=== PATIENT | female | born 1970 | race Caucasian/White ===

== ENCOUNTER 2017-10-11 07:39 | Emergency (ER) | payer BC, OTHER ==
[~2017-10-11] VITALS: Ht 167.6 cm; Wt 128.7 kg
[2017-10-11 07:46] VITALS: Ht 167.6 cm; Wt 128.7 kg
[2017-10-11] MEDS ORDERED: DEXAMETHASONE INJ 10 MG in SYRINGE 0 ML IV STA (08:09)
[2017-10-11] MEDS ORDERED: PROCHLORPERAZINE 5 MG/ML 2 ML VIAL IV STA (08:09)
[2017-10-11] MEDS ORDERED: KETOROLAC TROMETHAMINE 30 MG/ML VIAL IV STA (08:09)
[2017-10-11] MEDS ORDERED: SODIUM CHLORIDE 0.9% 1000ML 1,000 ML IV STA (08:09)
[2017-10-11] MEDS ORDERED: PHEN-905 PO (08:19)
[2017-10-11] MEDS ORDERED: PHEN-582 PO (08:19)
[2017-10-11] MEDS ORDERED: PSEUCAP67 PO (08:19)
[2017-10-11] MEDS ORDERED: DIPH1TAB87 PO (08:20)
--- NOTE | 2017-10-11 08:28 | EMERGENCY ROOM VISIT NOTE ---
History First contact with patient: 07:52 Chief Complaint: FLU LIKE SX Stated Complaint: MIGRAINE,FLU,NO SLEEP History of Present Illness The patient is a 46 year old female who presents to the Emergency Room with complaints of migraine headache for the past 5 days. She states "I think I have a stomach flu that just won't go away." She describes the headache as pounding/throbbing, frontal and behind the eyes, does not radiate, nothing makes it better, 8/10. She has had associated photophobia. The patient states that she started with nausea/vomiting and diarrhea 5 days ago, and then began to develop a headache with this. Possible sick contacts with similar symptoms. She states that she has a history of migraine headaches and this feels the same. She states that she has not been able to keep down minimal fluids and has been having difficulty sleeping. Normally when she gets a migraine headache , she "sleeps it off and it gets better." She states that she has tried Tylenol , ibuprofen, Benadryl for her symptoms, without any improvement. She denies any fevers or chills, neck pain or stiffness, chest pain, shortness of breath, abdominal pain, back pain, blood in her stool or vomit, dysuria or urinary frequency, rash. Her last menstrual period was 3 weeks ago. Review of Systems A complete 10 point review of systems was reviewed with the patient with pertinent positives and negatives as per history of present illness. All else were negative. Past Medical/Surgical History Migraines, chronic pain on narcotics Social History Smoking Status: Never Smoker Alcohol Use: none Drug Use: none Current/Historical Medications Scheduled Alprazolam (Xanax), 2 MG PO DAILY Furosemide (Lasix), 40 MG PO DAILY Morphine Sulfate (Morphine Sulfate ER), 1 TAB PO Q12 Oxycodone HCl (Oxycodone Hydrochloride), 15 MG PO QID Hqdgqornytgxa-Fy-Hx W/ Apap (Tylenol Cold & Flu Severe), 2 TAB PO BID Xxbfgglkwefoh-Ryfjlqlcqc-Xbudj (Nyquil Severe Cold/Flu 5-6.25-10-325 mg/15Ml), 5 -10 ML PO BID Pseudoephedrine-Ibuprofen (Advil Cold & Sinus), 2 TABS PO BID Scheduled PRN Diphenhydramine Hcl (Benadryl Allergy), 25 MG PO DAILY PRN for SNEEZING Zolpidem Tartrate (Zolpidem Tartrate), 1 TAB PO HS PRN for UNDECIDED Allergies Reviewed in chart Physical Exam Vital Signs Date Time Temp Pulse Resp B/P (MAP) Pulse Ox O2 Delivery O2 Flow Rate FiO2 10/11/17 12:41 36.8 77 17 141/91 97 10/11/17 11:49 36.8 77 17 141/91 97 Room Air 10/11/17 10:02 56 17 135/82 97 Room Air 10/11/17 08:50 36.8 72 17 136/96 98 Room Air 10/11/17 08:29 98 Room Air 10/11/17 08:26 65 10/11/17 07:46 36.8 66 17 146/90 97 Room Air Physical Exam CONSTITUTIONAL: No acute distress. Moderately dehydrated. Alert and oriented X 4 with normal affect. HEENT: Normocephalic, atraumatic. PERRL, EOMI. Positive photophobia. TMs normal. Pharynx normal. Dry mucous membranes. NECK: Supple, full active range of motion without discomfort. RESPIRATORY: Clear to auscultation bilaterally with no wheezing, crackles, rhonchi or stridor. Equal expansion bilaterally. CARDIOVASCULAR: Regular rate and rhythm with no murmurs, rubs or gallops. Normal peripheral perfusion. No edema. GASTROINTESTINAL: Soft, nontender, nondistended. Bowel sounds present in all quadrants. MUSCULOSKELETAL: Full range of motion of all joints without discomfort. INTEGUMENTARY: No rash or other significant dermatologic conditions noted. NEUROLOGIC: Cranial nerves II-XII grossly intact. No focal neurologic deficits noted. Normal strength and sensation all 4 extremities, no facial droop, no pronator drift, normal gait and balance, normal speech, normal finger-nose- finger testing, negative Romberg. Medical Decision & Procedures Laboratory Results 10/11/17 08:32 Red Blood Count 5.53, Mean Corpuscular Volume 79.0, Mean Corpuscular Hemoglobin 26.4, Mean Corpuscular Hemoglobin Concent 33.4, Mean Platelet Volume 9.9, Neutrophils (%) (Auto) 69.4, Lymphocytes (%) (Auto) 25.2, Monocytes (%) (Auto) 4.6, Eosinophils (%) (Auto) 0.1, Basophils (%) (Auto) 0.1, Neutrophils # (Auto) 10.81, Lymphocytes # (Auto) 3.92, Monocytes # (Auto) 0.71, Eosinophils # (Auto) 0.01, Basophils # (Auto) 0.01 10/11/17 08:32 Test 10/11/17 08:32 10/11/17 11:20 White Blood Count 15.56 K/uL (4.8-10.8) Red Blood Count 5.53 M/uL (4.2-5.4) Hemoglobin 14.6 g/dL (12.0-16.0) Hematocrit 43.7 % (37-47) Mean Corpuscular Volume 79.0 fL (80-100) Mean Corpuscular Hemoglobin 26.4 pg (25-34) Mean Corpuscular Hemoglobin Concent 33.4 g/dl (32-36) Platelet Count 469 K/uL (130-400) Mean Platelet Volume 9.9 fL (7.4-10.4) Neutrophils (%) (Auto) 69.4 % Lymphocytes (%) (Auto) 25.2 % Monocytes (%) (Auto) 4.6 % Eosinophils (%) (Auto) 0.1 % Basophils (%) (Auto) 0.1 % Neutrophils # (Auto) 10.81 K/uL (1.4-6.5) Lymphocytes # (Auto) 3.92 K/uL (1.2-3.4) Monocytes # (Auto) 0.71 K/uL (0.11-0.59) Eosinophils # (Auto) 0.01 K/uL (0-0.5) Basophils # (Auto) 0.01 K/uL (0-0.2) RDW Standard Deviation 41.2 fL (36.4-46.3) RDW Coefficient of Variation 14.3 % (11.5-14.5) Immature Granulocyte % (Auto) 0.6 % Immature Granulocyte # (Auto) 0.10 K/uL (0.00-0.02) Anion Gap 10.0 mmol/L (3-11) Est Creatinine Clear Calc Drug Dose 105.0 ml/min Estimated GFR () 86.5 Estimated GFR (Non- 74.7 BUN/Creatinine Ratio 17.2 (10-20) Calcium Level 9.7 mg/dl (8.5-10.1) Total Bilirubin 0.5 mg/dl (0.2-1) Direct Bilirubin 0.1 mg/dl (0-0.2) Aspartate Amino Transf (AST/SGOT) 17 U/L (15-37) Alanine Aminotransferase (ALT/SGPT) 22 U/L (12-78) Alkaline Phosphatase 120 U/L (45-117) Total Protein 8.8 gm/dl (6.4-8.2) Albumin 4.1 gm/dl (3.4-5.0) Lipase 277 U/L (73-393) Urine Color YELLOW Urine Appearance CLEAR (CLEAR) Urine pH 5.5 (4.5-7.5) Urine Specific Roscoe 1.023 (1.000-1.030) Urine Protein NEG (NEG) Urine Glucose (UA) NEG (NEG) Urine Ketones 2+ (NEG) Urine Occult Blood NEG (NEG) Urine Nitrite NEG (NEG) Urine Bilirubin NEG (NEG) Urine Urobilinogen NEG (NEG) Urine Leukocyte Esterase NEG (NEG) Urine Test NEG (NEG) Medications Administered Medications (Trade) Dose Ordered Sig/Tonny Route Start Time Stop Time Status Last Admin Dose Admin Sodium Chloride 1,000 ml @ 999 mls/hr Q1H1M STAT IV 10/11/17 08:09 10/11/17 09:09 DC 10/11/17 08:46 999 MLS/HR Ketorolac Tromethamine (Toradol Inj) 15 mg NOW STAT IV 10/11/17 08:09 10/11/17 08:14 DC 10/11/17 08:45 15 MG Prochlorperazine Edisylate (Compazine Inj) 10 mg NOW STAT IV 10/11/17 08:09 10/11/17 08:14 DC 10/11/17 08:47 10 MG Dexamethasone Sodium Phosphate (Dexamethasone Inj Pf) 10 mg STK-MED ONCE .ROUTE 10/11/17 08:35 10/11/17 08:36 DC 10/11/17 08:46 10 MG Diphenhydramine HCl (Benadryl Inj) 50 mg NOW STAT IV 10/11/17 09:38 10/11/17 09:40 DC 10/11/17 09:58 50 MG Medical Decision CC: Patient presenting with complaint of nausea/vomiting, diarrhea, migraine headache Interpretation of Labs: Leukocytosis with left shift, no anemia, no significant electrolyte abnormalities, normal renal function, normal liver enzymes and lipase. UA negative for infection, consistent with dehydration. Urine negative. Differential Diagnosis: Includes, but not limited to migraine headache, tension headache, dehydration, electrolyte abnormalities, gastroenteritis, gastritis, food poisoning, , among others. Medication Reconciliation: I attest that I have personally reviewed the patient' s current medication list. Vital signs review: I reviewed the patient's vital signs and interpret them as follows: T: Afebrile; BP: Hypertensive; HR: Within normal limits; RR: Within normal limits; Pulse Ox: Within normal limits on room air. Blood pressure screening: The patient was found to have an elevated blood pressure and was referred to their primary doctor for recheck and further treatment. Summary: Patient was evaluated at bedside, history and physical exam performed. Patient alert and oriented, no acute distress but does appear uncomfortable and in pain, resting calmly in the stretcher. Neurologic exam is normal with no focal findings. Patient states this feels similar to previous migraines, is not the worst headache of her life and did not come on suddenly. She states "I just want to be able to sleep and I think the headache go away." Orders were placed at bedside for labs, UA and urine , IV fluids for hydration, IV Reglan/Toradol/Benadryl/Decadron to treat for migraine headache. Patient discussed with Dr. Hernández, who agrees with my assessment and plan. Labs reviewed, notable for leukocytosis and mild dehydration, no other acute abnormalities. Patient reassessed multiple times throughout ED stay, she reports she is feeling somewhat better, still has a migraine but states this is improving. She also feels better hydrated. She has tolerated oral fluids without difficulty. She was offered something additional for her migraine, but she declines this stating she would like to just go home and continue resting. I did encourage her to follow up with her PCP and to reestablish with a neurologist if her migraines continue, she verbalized understanding. I also gave her strict return percussion should her symptoms worsen, she verbalized understand. Patient was discharged home in stable condition and ambulatory. Head Trauma GCS Score: 15 Medication Reconcilliation Current Medication List: was personally reviewed by me Blood Pressure Screening Patient's blood pressure: Elevated blood pressure Blood pressure disposition: Referred to PCP Impression Primary Impression: Gastroenteritis Additional Impressions: Migraine Dehydration Departure Information Dispostion Home / Self-Care Condition GOOD Referrals No Doctor, Assigned (PCP) Forms HOME CARE DOCUMENTATION FORM, IMPORTANT VISIT INFORMATION Patient Instructions ED Food Poison Or Gastroenteritis, ED Headache Migraine, My [facility] Additional Instructions Rest today in a quiet, peaceful, dark environment and get a full 8-10 hrs of sleep tonight. Avoid loud noises, smoke/smoking, alcohol, bright lights, stress, or physical exertion today to minimize the chance the headache may return. Continue current medications as prescribed. Ibuprofen(Motrin, Advil) may be used for fever or pain. Use 600mg every 6-8 hours as needed. Take with food. Avoid using more than 2400mg in a 24 hour period. Do not use 2400mg per day for more than three consecutive days without physician direction. Prolonged inappropriate use can lead to stomach upset or ulcers. (AND/OR) Acetaminophen(Tylenol) may be used for fever or pain. Use 1000mg every 8 hours as needed. Avoid using more than 3000 mg in a 24 hour period. Return to the ER for passing out, worsening headache, vision problems, neck stiffness/pain, fevers, vomiting, worsening of your condition, or as needed. Follow up with your primary physician in 2-3 days for a recheck of your current condition. You may benefit from seeing a neurologist if your migraines continue. Work Instructions Return To Work: 1 day Problem Qualifiers Additional Impressions: Migraine Migraine type: unspecified Status migrainosus presence: without status migrainosus Intractability: not intractable Qualified Codes: G43.909 - Migraine, unspecified, not intractable, without status migrainosus
[2017-10-11 08:29] VITALS: O2SAT 98
[2017-10-11] MEDS ORDERED: DEXAMETHASONE **PF** INJ 10 MG/ML VIAL ONE (08:35)
[2017-10-11 08:50] LABS: BASO % 0.1 %; BASO ABS # 0.01 K/uL (0-0.2); COMPLETE YES; EOS % 0.1 %; HEMATOCRIT 43.7 % (37-47); IG% 0.6 %; LYMPH % 25.2 %; LYMPH ABS # 3.92 K/uL (1.2-3.4); MEAN CORPUSCULAR HEMOGLOBIN 26.4 pg (25-34); MEAN CORPUSCULAR HGB CONC 33.4 g/dl (32-36); MEAN PLATELET VOLUME 9.9 fL (7.4-10.4); MONO % 4.6 %; NEUT % 69.4 %; PLATELET COUNT 469 K/uL (130-400); RED BLOOD COUNT 5.53 M/uL (4.2-5.4); WHITE BLOOD COUNT 15.56 K/uL (4.8-10.8)
[2017-10-11 09:07] LABS: BUN/CREATININE RATIO 17.2 (10-20); CALCIUM 9.7 mg/dl (8.5-10.1); CREATININE 0.92 mg/dl (0.60-1.20); POTASSIUM 3.3 mmol/L (3.5-5.1)
[2017-10-11] MEDS ORDERED: DiphenhydrAMINE HCL 50 MG/ML VIAL IV STA (09:38)
[2017-10-11] MEDS ORDERED: FRS/40 PO (10:22)
[2017-10-11] MEDS ORDERED: ZOLP5TAB6 PO (10:22)
[2017-10-11] MEDS ORDERED: OXYC1CAP PO (10:22)
[2017-10-11] MEDS ORDERED: MRPSR60 PO (10:22)
[2017-10-11] MEDS ORDERED: ALPR1TAB3 PO (10:22)
[2017-10-11 11:36] LABS: URINE APPEARANCE CLEAR (CLEAR); URINE BILIRUBIN NEG (NEG); URINE COLOR YELLOW; URINE NITRITE NEG (NEG); URINE PH 5.5 (4.5-7.5); URINE SPECIFIC GRAVITY 1.023 (1.000-1.030); UROBILINOGEN NEG (NEG)
[2017-10-11 11:37] LABS: MANUAL MICROSCOPIC REQUIRED? NO; REVIEW REQ? NO
[2017-10-11 12:41] VITALS: BP 141/91; PULSE 77; TEMP 36.8; O2SAT 97
== END 2017-10-11 12:42 | disposition home or self-care (01) ==
LOC: C.EDB 07:41
DX: K52.9 Noninfective gastroenteritis and colitis, unspecified (principal); G43.909 Migraine, unspecified, not intractable, without status migrainosus; E86.0 Dehydration

== ENCOUNTER 2018-02-16 16:09 | Observation (INO) | payer OTHER ==
[~2018-02-16] VITALS: Ht 167.6 cm; Wt 121.2 kg
[~2018-02-16 16:09] MED LIST: ALPR1TAB3 PO; DIPH1TAB87 PO; FRS/40 PO; MRPSR60 PO; OXYC1CAP PO; PHEN-582 PO; PHEN-905 PO; PSEUCAP67 PO; ZOLP5TAB6 PO
[2018-02-16] MEDS ORDERED: NITROGLYCERIN 0.4 MG SL PER TAB CHARGE SL STA (16:23)
[2018-02-16] MEDS ORDERED: ASPIRIN 81 MG CHEW PO STA (16:23)
[2018-02-16] MEDS ORDERED: SODIUM CHLORIDE 0.9% 1000ML 1,000 ML IV STA (16:23)
--- NOTE | 2018-02-16 16:26 | EMERGENCY ROOM VISIT NOTE ---
History Report prepared by Corey: Alejandra Agustin Under the Supervision of: Dr. Eliseo Ken M.D. First contact with patient: 16:20 Chief Complaint: CARDIAC ASSESSMENT Stated Complaint: STOMACH/CHEST PAIN History of Present Illness The patient is a 47 year old female who presents to the Emergency Room with complaints of chest and epigastric pain beginning at 1000 this morning. She describes the pain as "weird" and rates her pain as a 6/10 in severity. She has SOB but denies having a cough. She denies traveling anywhere recently or taking hormone pills or creams. No hemoptysis. No recent surgery or trauma. No radiation of the chest pain. Source of History: patient Onset: 1000 this morning Position: chest Symptom Intensity: 6/10 in severity Quality: other ("weird") Associated Symptoms: + SOB, No cough Note: Negative recent travel or hormone pills or creams. Review of Systems See HPI for pertinent positives and negatives. A total of ten systems were reviewed and were otherwise negative. Past Medical & Surgical Medical Problems: (1) Chest pain (2) Chronic back pain (3) VANIA (generalized anxiety disorder) (4) Insomnia Family History Patient reports no known family medical history. Social History Smoking Status: Never Smoker Alcohol Use: none Drug Use: none Current/Historical Medications Scheduled Escitalopram (Lexapro), 10 MG PO DAILY Lorazepam (Ativan), 0.5 MG PO NEEDED Oxycodone HCl (Oxycodone Hydrochloride), 5 MG PO NEEDED Allergies Coded Allergies: Sulfa Antibiotics (Unverified Allergy, Unknown, RASH, 10/11/17) REACTION A TEEN Physical Exam Vital Signs Date Time Temp Pulse Resp B/P (MAP) Pulse Ox O2 Delivery O2 Flow Rate FiO2 02/16/18 18:39 75 18 153/79 98 Room Air 02/16/18 17:48 77 20 131/83 97 Room Air 02/16/18 17:11 80 20 130/71 98 Room Air 02/16/18 16:35 84 02/16/18 16:28 89 22 150/91 99 Room Air 02/16/18 16:22 96 Room Air 02/16/18 16:20 97 Room Air 02/16/18 16:16 36.9 94 17 142/100 97 Room Air Physical Exam Physical Exam GENERAL: She is oriented to person, place, and time. She appears well- developed and well-nourished. She does not appear distressed. ____ HENT: Exam performed. Head: Normocephalic and atraumatic. Right Ear: External ear normal. No mastoid tenderness. Left Ear: External ear normal. No mastoid tenderness. Mouth/Throat: The oropharynx is clear and moist. No trismus in the jaw. No dental abscesses or uvula swelling. No oropharyngeal exudate or tonsillar abscesses. ____ EYES: Conjunctivae and EOM are normal. Pupils are equal, round, and reactive to light. Right eye exhibits no discharge. Left eye exhibits no discharge. No scleral icterus. ____ NECK: Normal range of motion. Neck supple. No JVD present. No spinous process tenderness present. No carotid bruit present. No rigidity. No tracheal deviation and normal range of motion present. No Brudzinski's sign and no Kernig 's sign noted. ____ CV: Normal rate, regular rhythm, normal heart sounds and intact distal pulses. There is no peripheral edema. Palpable radial pulses bue. ____ PULM/CHEST: Effort normal and breath sounds normal. No respiratory distress. No stridor. She has no wheezes. She has no rales. Chest Wall: She exhibits no tenderness. ____ ABD: The abdomen is soft. Bowel sounds are normal. She has no distension. No mass is present. There is no tenderness. There is no rebound, no guarding, no Uribe's sign and no tenderness at McBurney's point. Rovsig negative MUSC/SKEL: Normal range of motion. There is no peripheral edema, tenderness or deformity. LYMPH: No cervical adenopathy. ____ NEURO: She is alert and oriented to person, place, and time. She has normal strength. No cranial nerve deficit or sensory deficit. Coordination and gait normal. GCS eye subscore is 4. GCS verbal subscore is 5. GCS motor subscore is 6. Cerebellar tests wnl. ____ SKIN: Skin is warm and dry. She is not diaphoretic. ____ PSYCH: She has a normal mood and affect. Her behavior is normal. Judgment and thought content normal. ____ Medical Decision & Procedures ER Provider Diagnostic Interpretation: Radiology results as stated below per my review and radiologist interpretation: CHEST 2 VIEWS ROUTINE HISTORY: Atypical chest pain. COMPARISON: None. FINDINGS: The lungs are clear. Cardiac silhouette is normal in size. No pleural effusions. No pneumothorax. IMPRESSION: No acute process. Electronically signed by: Curtis Brooke M.D. 02/16/2018 6:19 PM Dictated Date/Time: 02/16/2018 6:18 PM Laboratory Results 02/16/18 16:30 Red Blood Count 5.59, Mean Corpuscular Volume 81.2, Mean Corpuscular Hemoglobin 27.5, Mean Corpuscular Hemoglobin Concent 33.9, Mean Platelet Volume 10.8, Neutrophils (%) (Auto) 52.0, Lymphocytes (%) (Auto) 42.3, Monocytes (%) (Auto) 4.9, Eosinophils (%) (Auto) 0.2, Basophils (%) (Auto) 0.3, Neutrophils # (Auto) 5.41, Lymphocytes # (Auto) 4.39, Monocytes # (Auto) 0.51, Eosinophils # (Auto) 0.02, Basophils # (Auto) 0.03 02/16/18 16:30 Test 02/16/18 16:30 02/16/18 16:35 White Blood Count 10.39 K/uL (4.8-10.8) Red Blood Count 5.59 M/uL (4.2-5.4) Hemoglobin 15.4 g/dL (12.0-16.0) Hematocrit 45.4 % (37-47) Mean Corpuscular Volume 81.2 fL (80-100) Mean Corpuscular Hemoglobin 27.5 pg (25-34) Mean Corpuscular Hemoglobin Concent 33.9 g/dl (32-36) Platelet Count 458 K/uL (130-400) Mean Platelet Volume 10.8 fL (7.4-10.4) Neutrophils (%) (Auto) 52.0 % Lymphocytes (%) (Auto) 42.3 % Monocytes (%) (Auto) 4.9 % Eosinophils (%) (Auto) 0.2 % Basophils (%) (Auto) 0.3 % Neutrophils # (Auto) 5.41 K/uL (1.4-6.5) Lymphocytes # (Auto) 4.39 K/uL (1.2-3.4) Monocytes # (Auto) 0.51 K/uL (0.11-0.59) Eosinophils # (Auto) 0.02 K/uL (0-0.5) Basophils # (Auto) 0.03 K/uL (0-0.2) RDW Standard Deviation 44.3 fL (36.4-46.3) RDW Coefficient of Variation 15.1 % (11.5-14.5) Immature Granulocyte % (Auto) 0.3 % Immature Granulocyte # (Auto) 0.03 K/uL (0.00-0.02) D-Dimer 320 ug/L FEU (0-500) Anion Gap 7.0 mmol/L (3-11) Est Creatinine Clear Calc Drug Dose 93.3 ml/min Estimated GFR () 79.6 Estimated GFR (Non- 68.7 BUN/Creatinine Ratio 7.1 (10-20) Calcium Level 9.5 mg/dl (8.5-10.1) Total Bilirubin 0.4 mg/dl (0.2-1) Direct Bilirubin 0.1 mg/dl (0-0.2) Aspartate Amino Transf (AST/SGOT) 23 U/L (15-37) Alanine Aminotransferase (ALT/SGPT) 25 U/L (12-78) Alkaline Phosphatase 115 U/L (45-117) Troponin I < 0.015 ng/ml (0-0.045) Total Protein 8.2 gm/dl (6.4-8.2) Albumin 4.1 gm/dl (3.4-5.0) Lipase 132 U/L (73-393) Bedside Troponin I < 0.030 ng/ml (0-0.045) Laboratory results reviewed by me Medications Administered Medications (Trade) Dose Ordered Sig/Tonny Route Start Time Stop Time Status Last Admin Dose Admin Nitroglycerin (Nitrostat Tab) 0.4 mg ONE STAT SL 02/16/18 16:23 02/16/18 16:27 DC 02/16/18 16:31 0.4 MG Sodium Chloride 1,000 ml @ 999 mls/hr Q1H1M STAT IV 02/16/18 16:23 02/16/18 17:23 DC 02/16/18 16:34 999 MLS/HR Aspirin (Aspirin Chew) 324 mg NOW STAT PO 02/16/18 16:23 02/16/18 16:27 DC 02/16/18 16:30 324 MG Lorazepam (Ativan Inj) 1 mg NOW STAT IV 02/16/18 16:48 02/16/18 16:49 DC 02/16/18 17:10 1 MG ECG Per My Interpretation Indication: other (chest and epigastric pain) Rate (beats per minute): 85 Rhythm: sinus rhythm Findings: T-wave inversion (leads AVF, lead III and V3), other (ID, QRS, and QTC within normal limits, slight ST depression in V4 and V5) Change: Repeat EKG: sinus rhythm, rate of 94, ID, QRS, and QTC within normal limits, mild ST depression in V4 and V5, T wave inversion in leads III, AVF, and V3 and no change from 1622. ED Course 1621: The patient was evaluated in room B12. A complete history and physical exam was performed. 1622: sinus rhythm, rate of 85, ID, QRS, and QTC within normal limits, slight ST depression in V4 and V5, T wave inversion in leads AVF, lead III and V3. Repeat EKG: sinus rhythm, rate of 94, ID, QRS, and QTC within normal limits, mild ST depression in V4 and V5, T wave inversion in leads III, AVF, and V3 and no change from 1622. 1623: Aspirin 324 mg PO Sodium 1000 ml @ 999 mls/hr Nitroglycerin 0.4 mg SL 1648: Lorazepam 1 mg IV 1839: Maalox Max Susp 30 ml PO 184: Vitals signs are stable. Patient reported her chest pain and dyspnea resolved status post one sublingual nitro. Given the patients symptoms resolved after nitro and her EKG changes, will admit the patient to rule out ACS. D- dimer and troponin negative. [facility] Hospitalist will further evaluate the patient Medical Decision Vitals signs are stable. Patient reported her chest pain and dyspnea resolved status post one sublingual nitro. Given the patients symptoms resolved after nitro and her EKG changes, will admit the patient to rule out ACS. D-dimer and troponin negative. [facility] Hospitalist will further evaluate the patient Medication Reconcilliation Current Medication List: was personally reviewed by me Blood Pressure Screening Patient's blood pressure: Elevated blood pressure Blood pressure disposition: Elevated BP felt to be situational Consults Time Called: 183 Consulting Physician: [facility] Hospitalist Returned Call: [phone] [facility] Hospitalist will further evaluate the patient Impression Primary Impression: Dyspnea Additional Impression: Chest pain Scribe Attestation The scribe's documentation has been prepared under my direction and personally reviewed by me in its entirety. I confirm that the note above accurately reflects all work, treatment, procedures, and medical decision making performed by me. The chart was completed utilizing [employer] voice recognition software. Grammatical errors, random word insertions, pronoun errors, and incomplete sentences are an occasional consequence of this system due to software limitations, ambient noise, and hardware issues. Any formal questions or concerns about the content, text, or information contained within the body of this dictation should be directly addressed to the physician for clarification. Departure Information Dispostion Being Evaluated By Hospitalist ([facility] Hospitalist) Referrals No Doctor, Assigned (PCP) Patient Instructions My [facility] Problem Qualifiers Primary Impression: Dyspnea Dyspnea type: unspecified Qualified Codes: R06.00 - Dyspnea, unspecified Additional Impression: Chest pain Chest pain type: unspecified Qualified Codes: R07.9 - Chest pain, unspecified
[2018-02-16 16:42] LABS: BASO % 0.3 %; BASO ABS # 0.03 K/uL (0-0.2); EOS % 0.2 %; EOS ABS # 0.02 K/uL (0-0.5); HEMATOCRIT 45.4 % (37-47); HEMOGLOBIN 15.4 g/dL (12.0-16.0); IG# 0.03 K/uL (0.00-0.02); LYMPH % 42.3 %; LYMPH ABS # 4.39 K/uL (1.2-3.4); MEAN CELL VOLUME 81.2 fL (80-100); MEAN CORPUSCULAR HEMOGLOBIN 27.5 pg (25-34); MEAN CORPUSCULAR HGB CONC 33.9 g/dl (32-36); MEAN PLATELET VOLUME 10.8 fL (7.4-10.4); MONO % 4.9 %; MONO ABS # 0.51 K/uL (0.11-0.59); NEUT ABS # 5.41 K/uL (1.4-6.5); PLATELET COUNT 458 K/uL (130-400); RED CELL DISTRIBUTION WIDTH CV 15.1 % (11.5-14.5); RED CELL DISTRIBUTION WIDTH SD 44.3 fL (36.4-46.3); WHITE BLOOD COUNT 10.39 K/uL (4.8-10.8)
[2018-02-16] MEDS ORDERED: LORA-741 PO (16:46)
[2018-02-16] MEDS ORDERED: ESCI10TA17 PO (16:46)
[2018-02-16] MEDS ORDERED: LORAZEPAM 2 MG/ML 1 ML VIAL IV STA (16:48)
[2018-02-16 17:04] LABS: ALBUMIN 4.1 gm/dl (3.4-5.0); ALT/SGPT 25 U/L (12-78); AST/SGOT 23 U/L (15-37); BLOOD UREA NITROGEN 7 mg/dl (7-18); CALCIUM 9.5 mg/dl (8.5-10.1); CARBON DIOXIDE 28 mmol/L (21-32); CREATININE 0.98 mg/dl (0.60-1.20); GLUCOSE 103 mg/dl (70-99); LIPASE 132 U/L (73-393); POTASSIUM 3.5 mmol/L (3.5-5.1); SODIUM 141 mmol/L (136-145)
[2018-02-16 17:09] LABS: ALKALINE PHOSPHATASE 115 U/L (45-117); TOTAL PROTEIN 8.2 gm/dl (6.4-8.2)
--- NOTE | 2018-02-16 18:20 | DIAGNOSTIC IMAGING REPORT ---
CHEST 2 VIEWS ROUTINE HISTORY: Atypical chest pain. COMPARISON: None. FINDINGS: The lungs are clear. Cardiac silhouette is normal in size. No pleural effusions. No pneumothorax. IMPRESSION: No acute process. Electronically signed by: Curtis Brooke M.D. 02/16/2018 6:19 PM Dictated Date/Time: 02/16/2018 6:18 PM
[2018-02-16] MEDS ORDERED: ALUMINUM/MAGNESIUM/SIMETH (MAALOX MAX) 30 ML UDC PO STA (18:39)
[2018-02-16] MEDS ORDERED: ALUMINUM/MAGNESIUM/SIMETH (MAALOX MAX) 30 ML UDC PO PRN (18:45)
[2018-02-16] MEDS ORDERED: NITROGLYCERIN 0.4 MG SL PER TAB CHARGE SL PRN (18:45)
[2018-02-16] MEDS ORDERED: POLYETHYLENE (MIRALAX) 17 GM PACK PO PRN (18:45)
[2018-02-16] MEDS ORDERED: ACETAMINOPHEN 325 MG TAB PO PRN (18:45)
[2018-02-16] MEDS ORDERED: ONDANSETRON INJ 2 MG/ML 2 ML VIAL IV PRN (18:45)
[2018-02-16] MEDS ORDERED: ALUMINUM/MAGNESIUM SUSP 30 ML UDC ONE (18:50)
[2018-02-16] MEDS: PANTOprazole SOD 40 MG TAB PO SCH (18:54)
--- NOTE | 2018-02-16 18:55 | History and Physical ---
History & Physical Date of Service Feb 16, 2018. History & Physical pt seen and examed, d/w PA about rubio points of dignosis and care plan, agreed current management, for details please referral to PA's note S: epigastric pain ROS details see PA's note O: VS reviewed, stable, NAD, obesity Lungs: decreased breathing sound, no respiratory distress, no accessory muscle use Cardiovascular: regular rate, rhythm, no edema, normal peripheral pulses Abdomen / GI: normal bowel sounds, non tender, soft Extremities: no calf tenderness, no pedal edema Neurologic/Psychiatric: alert, normal mood/affect, oriented x 3, CNII-XII intact labs, images reviewed , see PA's note A/P: chest pain rule out, Ddimer neg, cont tele, ce and tn x2 set more, dobutamine stress echo tomorrow if tn negative , npo mid night.
[2018-02-16] MEDS ORDERED: FAMOTIDINE 20 MG TAB PO ONE (19:00)
--- NOTE | 2018-02-16 19:04 | History and Physical ---
History & Physical Date & Time of Service: Feb 16, 2018 at 18:50 Chief Complaint: Stomach/Chest Pain Primary Care Physician: Argenis Cervantes M.D. History of Present Illness Source: patient This is a 47-year-old female with history of DJD, chronic back pain, anxiety, insomnia who presents with acute onset of upper epigastric/chest pain which began around 10 AM this morning. She reports the pain was a 6 out of 10, nonradiating, worse with palpation in the epigastric region. The patient reports that she was sitting at rest whenever she experience the sensation, and it was "odd" and has never experienced this before. Patient notes that she has not been significantly stressed out psychologically and denies any anxiety earlier today. Her diet has been poor recently due to having a broken tooth and reports oral intake has been significantly less, however she considers her self a "soda-aholic" and drinks regular caffeinated soda throughout the day. She denies any alcohol use. Patient denies history of GERD, gastric ulcers, or issues with nausea or vomiting. She reports that she was administered a nitroglycerin since being here in the ER but that her pain has not significantly changed and still rates it a 6 out of 10. On EKG there is ST depression in lateral/precordial leads. Her initial troponin and d-dimer are negative. A chest x-ray was completed and is also negative for any acute findings. Past Medical/Surgical History Medical Problems: (1) Chest pain (2) Chronic back pain (3) VANIA (generalized anxiety disorder) (4) Insomnia Social History Smoking Status: Never Smoker Smokeless Tobacco Use: No Alcohol Use: none Drug Use: none Marital Status: Housing status: lives with family Occupational Status: employed Allergies Coded Allergies: Sulfa Antibiotics (Unverified Allergy, Unknown, RASH, 10/11/17) REACTION A TEEN Home Medications Scheduled Escitalopram (Lexapro), 10 MG PO DAILY Lorazepam (Ativan), 0.5 MG PO NEEDED Oxycodone HCl (Oxycodone Hydrochloride), 5 MG PO NEEDED Review of Systems Constitutional: No fever, sweats or chills Eyes: No diplopia, no worsening or blurred vision ENT: normal hearing, no trouble swallowing Respiratory: No cough, sputum, dyspnea at rest or on exertion Cardiovascular: See HPI, no tightness or palpitations Abdomen: No pain, nausea, vomiting, diarrhea or constipation Musculoskeletal: No joint pain, calf pain, swelling Neurologic: No weakness, numbness/tingling, or balance problems Psychiatric: + hx anxiety and depression but well controlled Skin: No rash or itch Physical Exam Vital Signs Date Time Temp Pulse Resp B/P (MAP) Pulse Ox O2 Delivery O2 Flow Rate FiO2 02/16/18 18:39 75 18 153/79 98 Room Air 02/16/18 17:48 77 20 131/83 97 Room Air 02/16/18 17:11 80 20 130/71 98 Room Air 02/16/18 16:35 84 02/16/18 16:28 89 22 150/91 99 Room Air 02/16/18 16:22 96 Room Air 02/16/18 16:20 97 Room Air 02/16/18 16:16 36.9 94 17 142/100 97 Room Air General: awake, alert, no apparent distress Head: Normocephalic, atraumatic ENT: PERRL, EOMI, no pharyngeal exudate, mucous membranes moist Chest: Clear to auscultation, on room air, no adventitious breath sounds, nontender to palpation Cardiac: Regular rate and rhythm, + soft systolic murmur rated II/, no JVD, normal peripheral pulses, good capillary refill Abdominal: NABS x 4 quadrants, soft, tender to palpation in the epigastric region, no rebound, guarding or tenderness Extremities: Normal inspection, no peripheral edema or erythema, calfs nontender to palpation Psych: Normal mood and affect Neuro: AAO x 3, strength intact bilaterally and related 5/5, no motor deficits, speech is clear, no peripheral sensory deficits Diagnostics Laboratory Results Results Past 24 Hours Test 02/16/18 16:30 02/16/18 16:35 Range/Units White Blood Count 10.39 4.8-10.8 K/uL Red Blood Count 5.59 4.2-5.4 M/uL Hemoglobin 15.4 12.0-16.0 g/dL Hematocrit 45.4 37-47 % Mean Corpuscular Volume 81.2 80-100 fL Mean Corpuscular Hemoglobin 27.5 25-34 pg Mean Corpuscular Hemoglobin Concent 33.9 32-36 g/dl Platelet Count 458 130-400 K/uL Mean Platelet Volume 10.8 7.4-10.4 fL Neutrophils (%) (Auto) 52.0 % Lymphocytes (%) (Auto) 42.3 % Monocytes (%) (Auto) 4.9 % Eosinophils (%) (Auto) 0.2 % Basophils (%) (Auto) 0.3 % Neutrophils # (Auto) 5.41 1.4-6.5 K/uL Lymphocytes # (Auto) 4.39 1.2-3.4 K/uL Monocytes # (Auto) 0.51 0.11-0.59 K/uL Eosinophils # (Auto) 0.02 0-0.5 K/uL Basophils # (Auto) 0.03 0-0.2 K/uL RDW Standard Deviation 44.3 36.4-46.3 fL RDW Coefficient of Variation 15.1 11.5-14.5 % Immature Granulocyte % (Auto) 0.3 % Immature Granulocyte # (Auto) 0.03 0.00-0.02 K/uL D-Dimer 320 0-500 ug/L FEU Sodium Level 141 136-145 mmol/L Potassium Level 3.5 3.5-5.1 mmol/L Chloride Level 106 98-107 mmol/L Carbon Dioxide Level 28 21-32 mmol/L Anion Gap 7.0 3-11 mmol/L Blood Urea Nitrogen 7 7-18 mg/dl Creatinine 0.98 0.60-1.20 mg/dl Est Creatinine Clear Calc Drug Dose 93.3 ml/min Estimated GFR () 79.6 Estimated GFR (Non- 68.7 BUN/Creatinine Ratio 7.1 10-20 Random Glucose 103 70-99 mg/dl Calcium Level 9.5 8.5-10.1 mg/dl Total Bilirubin 0.4 0.2-1 mg/dl Direct Bilirubin 0.1 0-0.2 mg/dl Aspartate Amino Transf (AST/SGOT) 23 15-37 U/L Alanine Aminotransferase (ALT/SGPT) 25 12-78 U/L Alkaline Phosphatase 115 45-117 U/L Troponin I < 0.015 0-0.045 ng/ml Total Protein 8.2 6.4-8.2 gm/dl Albumin 4.1 3.4-5.0 gm/dl Lipase 132 73-393 U/L Bedside Troponin I < 0.030 0-0.045 ng/ml Diagnostic Radiology CHEST 2 VIEWS ROUTINE HISTORY: Atypical chest pain. COMPARISON: None. FINDINGS: The lungs are clear. Cardiac silhouette is normal in size. No pleural effusions. No pneumothorax. IMPRESSION: No acute process. Electronically signed by: Curtis Brooke M.D. 02/16/2018 6:19 PM Dictated Date/Time: 02/16/2018 6:18 PM The status of this report is Signed. EKG Normal sinus rhythm ST & T wave abnormality, consider anterolateral ischemia Abnormal ECG When compared with ECG of 16-FEB-2018 16:22, (unconfirmed) No significant change was found Vent. rate 94 BPM NH interval 138 ms QRS duration 82 ms QT/QTc 352/440 ms P-R-T axes 29 3 -44 Impression Assessment and Plan This is a 47-year-old female with history of DJD, chronic back pain, anxiety, insomnia who presents with acute onset of upper epigastric/chest pain which began around 10 AM this morning. She reports the pain was a 6/10, nonradiating , worse with palpation in the epigastric region. Chest pain rule out - Admit to telemetry for observation - Follow serial cardiac biomarkers, initial troponin was negative, trending 2 more sets - Checking lipids, A1c morning labs - Checking 2D echo - Statin therapy, asa 81 mg daily - Nitroglycerin tablets as needed -patient reports initial nitro tablet did not significantly alleviate her pain - CXR negative ? GERD - will start the patient on pantoprazole 40 mg daily, give Maalox suspension now , consider GI consult for gastric ulcers with pts significant soda intake if patient develops worsening nausea or vomiting and chest pain rule out is negative Chronic back pain - Continue oxycodone, patient is currently attempting to wean off of this per her PCP VANIA Depression - Continue Lexapro 10 mg daily, Ativan 0.5mg QHS prn DVT ppx: lovenox, ambulatory CODE STATUS: Full code Disposition: Patient from home, no needs anticipated. Resuscitation Status VTE Prophylaxis Will order VTE Prophylaxis: Yes
[2018-02-16] MEDS ORDERED: IV FLUIDS COMPLETED PRN (19:30)
[2018-02-16] MEDS: MoRPHine SULFATE 2 MG/ML CARP IV PRN (19:37)
[2018-02-16 20:16] VITALS: BP 134/91; PULSE 80; TEMP 36.8; O2SAT 96
[2018-02-16 21:04] LABS: PTT PATIENT 26.6 SECONDS (21.0-31.0)
[2018-02-16 22:23] VITALS: O2SAT 96; Ht 167.6 cm; Wt 121.2 kg
[2018-02-16] MEDS: ENOXAPARIN 40 MG/0.4 ML SYR SC SCH (22:24)
[2018-02-16] MEDS: SIMVASTATIN 40 MG TAB PO SCH (22:24)
[2018-02-16] MEDS ORDERED: ALUMINUM/MAGNESIUM SUSP 18 ML, LIDOCAINE HCL 2% VISCOUS SOLN 6 ML, BARCODE IDENTIFIER 1 EA PO SCH ×2 (22:45)
[2018-02-16] MEDS ORDERED: GI COCKTAIL PO ONE (22:45)
[2018-02-17] VITALS (10 sets, daily range): BP systolic 111–134; BP diastolic 70–87; PULSE 56–86; TEMP 36.6–36.8; O2SAT 96–99
[2018-02-17] MEDS ORDERED: MoRPHine SULFATE 2 MG/ML CARP IV STA (00:46)
[2018-02-17] MEDS ORDERED: RANITIDINE HCL 50 MG/100 ML D5W IV STA (04:12)
--- NOTE | 2018-02-17 04:26 | Progress Note ---
Progress Note Date of Service Feb 17, 2018. Progress Note Received a call from the nurse stating that the patient continues to have epigastric pain. Not worsened from admission and not better. I evaluated the patient, she seemed to be in no acute distress, she localized the site of her pain in the epigastric region. Her abdomen was soft, tender in the epigastric region, no rebound noted. I gave a GI cocktail to evaluate if the pain was GI related. The nurse updated me that the pain was not GI related, I gave a 2mg dose of IV morphine which did not work for her. A one time dose of IV Ranitidine was given (pt was on an IV PPI) and a CT Abdo and Pelvis w/o contrast was ordered. Resident Involvement: Training Administrator Coverage Note Care Provided: Adult Hospital Medicine
[2018-02-17] MEDS ORDERED: RANITIDINE IV 50 MG in DEXTROSE 5% 100ML 100 ML IV SCH (04:30)
[2018-02-17 06:24] LABS: BASO % 0.3 %; BASO ABS # 0.02 K/uL (0-0.2); EOS % 0.9 %; EOS ABS # 0.06 K/uL (0-0.5); HEMATOCRIT 38.8 % (37-47); IG# 0.02 K/uL (0.00-0.02); LYMPH ABS # 2.94 K/uL (1.2-3.4); MEAN CELL VOLUME 81.3 fL (80-100); MEAN CORPUSCULAR HEMOGLOBIN 27.3 pg (25-34); MEAN CORPUSCULAR HGB CONC 33.5 g/dl (32-36); MEAN PLATELET VOLUME 10.5 fL (7.4-10.4); NEUT % 48.5 %; NEUT ABS # 3.24 K/uL (1.4-6.5); PLATELET COUNT 311 K/uL (130-400); RED CELL DISTRIBUTION WIDTH CV 15.2 % (11.5-14.5); RED CELL DISTRIBUTION WIDTH SD 44.7 fL (36.4-46.3); WHITE BLOOD COUNT 6.68 K/uL (4.8-10.8)
[2018-02-17 06:58] LABS: CALCIUM 8.7 mg/dl (8.5-10.1); CARBON DIOXIDE 26 mmol/L (21-32); CREATININE 0.89 mg/dl (0.60-1.20); GLUCOSE 109 mg/dl (70-99); POTASSIUM 3.8 mmol/L (3.5-5.1); SODIUM 141 mmol/L (136-145)
[2018-02-17 07:01] LABS: CHOLESTEROL 128 mg/dl (0-200); LDL CHOLESTEROL CALCULATED 73 mg/dl
[2018-02-17] MEDS: PANTOprazole SOD 40 MG TAB PO SCH (07:59)
[2018-02-17] MEDS: ASPIRIN 81 MG ECTAB PO SCH (07:59)
[2018-02-17] MEDS: MoRPHine SULFATE 2 MG/ML CARP IV PRN (08:00)
--- NOTE | 2018-02-17 08:23 | DIAGNOSTIC IMAGING REPORT ---
ABD/PELVIS NO IV OR ORAL CONT CLINICAL HISTORY: 47 years-old Female presenting with abdominal pain. TECHNIQUE: Multidetector CT of the abdomen and pelvis was performed without the use of intravenous contrast. IV contrast: None. A dose lowering technique was used consistent with the principles of ALARA (as low as reasonably achievable). COMPARISON: None. CT DOSE (mGy.cm): The estimated cumulative dose is 1667.25 mGy.cm. FINDINGS: Embossed Or Impressed Lettering Painter topogram: Unremarkable. Lung bases: Lungs and pleural spaces clear. Normal heart size. No pericardial or pleural effusion. Fat-containing left Bochdalek hernia noted. Liver: Normal morphology. Density consistent with hepatic steatosis. Biliary: No gross biliary ductal dilatation allowing for noncontrast technique. Normal gallbladder. Pancreas: Moderate parenchymal atrophy. Spleen: Normal. Adrenal glands: Normal. Kidneys and ureters: Faint calcification of medullary pyramids suggested. No nephrolithiasis. No hydronephrosis. Normal ureters. Bladder: Incompletely evaluated secondary to underdistention. Pelvic organs: Normal noncontrast appearance. Bowel: Normal appendix. No bowel obstruction. Trace hiatal hernia. Peritoneal cavity: No free fluid or intraperitoneal gas. Lymph nodes: No gross lymphadenopathy allowing for noncontrast technique. Vasculature: Normal noncontrast appearance. Abdominal wall: Normal. Musculoskeletal: Degenerative changes of the spine. IMPRESSION: 1. Hepatic steatosis. Correlate with liver function tests to exclude steatohepatitis as a cause for abdominal pain. 2. No other evidence of acute intra-abdominal pathology. Electronically signed by: Artemio Rendon M.D. 02/17/2018 8:21 AM Dictated Date/Time: 02/17/2018 8:15 AM
[2018-02-17 08:25] LABS: BLOOD UREA NITROGEN 11 mg/dl (7-18)
[2018-02-17] MEDS ORDERED: NURSING VERBAL MED ORDER ONE ×2 (09:45→16:15)
[2018-02-17] MEDS ORDERED: MoRPHine SULFATE 2 MG/ML CARP IV ONE (10:00)
[2018-02-17] MEDS: NAPROXEN 250 MG TAB PO PRN ×2 (12:54→22:43)
--- NOTE | 2018-02-17 13:54 | Cardiology Consultation ---
Cardiology Consultation Date of Consultation: Feb 17, 2018. Requesting Physician: Dr. Ballesteros Reason for Consultation: CP Pt evaluation today including: conversation w/ patient, physical exam, lab review, review of studies, review of inpatient medication list History of Present Illness This is a 47-year-old woman who has had evaluations for chest discomfort elsewhere in the past but has never had an evaluation here. She reports having a different type of chest discomfort starting in the morning of February 16, 2018, perhaps around 10 AM, and still being present today. She locates it to her epigastric area and although she has had chest discomfort before she is little bit vague about what is different about this but she has never had this type of discomfort before. She did not have palpitations or lightheadedness. She does report that she has had difficulty with shortness of breath in the past and was short of breath this admission as well. She does not have orthopnea or PND. She notes that she intermittently has swelling of her legs and hands but that has not been the case recently. She tells me that she has been on Lasix in the past for the swelling but currently is not taking it. She was treated with sublingual nitroglycerin emergency room without change in her chest discomfort. Despite ongoing chest discomfort she appears comfortable. Past Medical/Surgical History (1) Chronic back pain (2) Insomnia Family History Patient reports no known family medical history. Social History Smoking Status: Never Smoker History of Alcohol Use: No Review of Systems Constitutional: No fever, No weight loss, No weakness Respiratory: + see HPI, + shortness of breath, No cough, No wheezing, No dyspnea on exertion Cardiac: + see HPI, + chest pain, No orthopnea, No PND, No edema, No palpitations Abdomen: No pain, No nausea, No vomiting, No diarrhea, No GI bleeding Female : No problem reported Neurologic: No paralysis, No weakness, No numbness/tingling, No balance problems Heme: No abnormal bleeding/bruising, No clotting problems Endo: No fatigue Skin: No problem reported All Other Systems: Reviewed and Negative Allergies Coded Allergies: Sulfa Antibiotics (Unverified Allergy, Unknown, RASH, 10/11/17) REACTION A TEEN Medications Current Inpatient Medications Medications (Trade) Dose Ordered Sig/Tonny Route Start Time Stop Time Status Last Admin Dose Admin Enoxaparin Sodium (Lovenox Inj) 40 mg Q24H SC 02/16/18 22:00 03/18/18 21:59 02/16/18 22:24 40 MG Acetaminophen (Tylenol Tab) 650 mg Q4H PRN PO 02/16/18 18:45 03/18/18 18:44 Al Hydrox/Mg Hydrox/Simethicone (Maalox Max Susp) 15 ml Q4H PRN PO 02/16/18 18:45 03/18/18 18:44 Ondansetron HCl (Zofran Inj) 4 mg Q6H PRN IV 02/16/18 18:45 03/18/18 18:44 Nitroglycerin (Nitrostat Tab) 0.4 mg UD PRN SL 02/16/18 18:45 03/18/18 18:44 Polyethylene (Miralax Powder Packet) 17 gm DAILY PRN PO 02/16/18 18:45 03/18/18 18:44 02/17/18 07:59 17 GM Pantoprazole Sodium (Protonix Tab) 40 mg QAM PO 02/16/18 18:45 03/18/18 18:44 02/17/18 07:59 40 MG Morphine Sulfate (MoRPHine SULFATE INJ) 2 mg Q6 PRN IV 02/16/18 19:00 03/02/18 18:59 02/17/18 08:00 2 MG Aspirin (Ecotrin Tab) 81 mg QAM PO 02/17/18 09:00 03/19/18 08:59 02/17/18 07:59 81 MG Simvastatin (Zocor Tab) 40 mg HS PO 02/16/18 21:00 03/18/18 20:59 02/16/18 22:24 40 MG Miscellaneous (Iv Fluids Completed) 1 ea PRN PRN N/A 02/16/18 19:30 02/16/19 19:29 Naproxen (Naprosyn Tab) 250 mg BID PRN PO 02/17/18 12:15 03/19/18 12:14 02/17/18 12:54 250 MG Physical Exam Vital Signs Past 12 Hours Date Time Temp Pulse Resp B/P (MAP) Pulse Ox O2 Delivery O2 Flow Rate FiO2 02/17/18 13:07 36.7 83 16 111/71 (84) 99 Room Air 02/17/18 12:00 Room Air 02/17/18 08:00 Room Air 02/17/18 07:14 36.7 86 16 119/70 (86) 97 Room Air 02/17/18 06:09 36.8 62 19 112/76 (88) 96 Room Air 02/17/18 04:00 96 Room Air Constitutional: General Apperance: overweight Level of Distress: NAD Psychiatric: Mental Status: active & alert Head: normocephalic Eyes: EOM: EOMI ENMT: normal ENT inspection, hearing grossly normal Neck: supple, no masses Lungs: Respiratory effort: no dyspnea, good air movement Auscultation: breath sounds normal, no wheezing Cardiovascular: Heart Auscultation: RRR, no murmurs, no rubs, no gallops Peripheral Pulses: Bruits: none appreciated Abdomen: Bowel Sounds: normal Inspection & Palpation: soft, no tenderness, guarding & rebound, no masses Musculoskeletal: normal strength (5/5 throughout) Extremities: no edema Neurologic: Cranial Nerves: grossly intact Sensation: grossly intact Data Laboratory Results: Last 24 Hours Test 02/16/18 16:30 02/16/18 16:35 02/16/18 22:05 02/17/18 06:09 White Blood Count 10.39 K/uL 6.68 K/uL Red Blood Count 5.59 M/uL 4.77 M/uL Hemoglobin 15.4 g/dL 13.0 g/dL Hematocrit 45.4 % 38.8 % Mean Corpuscular Volume 81.2 fL 81.3 fL Mean Corpuscular Hemoglobin 27.5 pg 27.3 pg Mean Corpuscular Hemoglobin Concent 33.9 g/dl 33.5 g/dl Platelet Count 458 K/uL 311 K/uL Mean Platelet Volume 10.8 fL 10.5 fL Neutrophils (%) (Auto) 52.0 % 48.5 % Lymphocytes (%) (Auto) 42.3 % 44.0 % Monocytes (%) (Auto) 4.9 % 6.0 % Eosinophils (%) (Auto) 0.2 % 0.9 % Basophils (%) (Auto) 0.3 % 0.3 % Neutrophils # (Auto) 5.41 K/uL 3.24 K/uL Lymphocytes # (Auto) 4.39 K/uL 2.94 K/uL Monocytes # (Auto) 0.51 K/uL 0.40 K/uL Eosinophils # (Auto) 0.02 K/uL 0.06 K/uL Basophils # (Auto) 0.03 K/uL 0.02 K/uL RDW Standard Deviation 44.3 fL 44.7 fL RDW Coefficient of Variation 15.1 % 15.2 % Immature Granulocyte % (Auto) 0.3 % 0.3 % Immature Granulocyte # (Auto) 0.03 K/uL 0.02 K/uL Prothrombin Time 10.8 SECONDS Prothromb Time International Ratio 1.0 Activated Partial Thromboplast Time 26.6 SECONDS Partial Thromboplastin Ratio 1.0 D-Dimer 320 ug/L FEU Sodium Level 141 mmol/L 141 mmol/L Potassium Level 3.5 mmol/L 3.8 mmol/L Chloride Level 106 mmol/L 109 mmol/L Carbon Dioxide Level 28 mmol/L 26 mmol/L Anion Gap 7.0 mmol/L 6.0 mmol/L Blood Urea Nitrogen 7 mg/dl 11 mg/dl Creatinine 0.98 mg/dl 0.89 mg/dl Est Creatinine Clear Calc Drug Dose 93.3 ml/min 103.2 ml/min Estimated GFR () 79.6 89.5 Estimated GFR (Non- 68.7 77.2 BUN/Creatinine Ratio 7.1 12.1 Random Glucose 103 mg/dl 109 mg/dl Calcium Level 9.5 mg/dl 8.7 mg/dl Total Bilirubin 0.4 mg/dl Direct Bilirubin 0.1 mg/dl Aspartate Amino Transf (AST/SGOT) 23 U/L Alanine Aminotransferase (ALT/SGPT) 25 U/L Alkaline Phosphatase 115 U/L Troponin I < 0.015 ng/ml < 0.015 ng/ml < 0.015 ng/ml Total Protein 8.2 gm/dl Albumin 4.1 gm/dl Lipase 132 U/L Bedside Troponin I < 0.030 ng/ml Triglycerides Level 102 mg/dl Cholesterol Level 128 mg/dl HDL Cholesterol 35 mg/dl LDL Cholesterol, Calculated 73 mg/dl VLDL Cholesterol, Calculated 20 mg/dl Cholesterol/HDL Ratio 3.7 Chemistry Specimen Hemolysis Test 02/17/18 12:00 Urine Opiates Screen POS Urine Methadone, Qualitative NEG Urine Barbiturates NEG Urine Phencyclidine (PCP) Level NEG Ur Amphetamine/Methamphetamine NEG MDMA (Ecstasy) Screen NEG Urine Benzodiazepines Screen NEG Urine Cocaine Metabolite NEG Urine Marijuana (THC) POS Imaging: Her chest x-ray is unremarkable EKG: Her presenting electrocardiogram done February 16, 2018 at 1622 shows sinus rhythm at 85 bpm with inferior and anterolateral T-wave inversion. A repeat electrocardiogram at 1639 is unchanged. Telemetry reviewed: Sinus rhythm, no significant arrhythmia Assessment & Plan 1. Chest pain: Although she describes this chest pain as being different than prior episodes, she does have a long history of chest discomfort which sounds as though it has been evaluated in the past. That evaluation has not taken place locally. Last summer she evidently had an evaluation in [place] including a stress test and was not made aware of any abnormalities. Currently she has had chest discomfort for over 24 hours and has had no change in her enzymes which are normal, her electrocardiogram has not changed although she does have inferior and anterolateral T-wave inversions. I do not know if these are new or old. At this point it seems unlikely that her chest discomfort is due to myocardial ischemia although I cannot explain her T-wave abnormalities. She is scheduled for a stress echo tomorrow and I would proceed with that. 2. Abnormal ECG: She has inferior and anterolateral T-wave inversions, they were the same on her 2 electrocardiograms although the tracings were done fairly close together. I am going to repeat that today and tomorrow morning to see if there is any type of evolution. It is possible this represents pericarditis, although she does not have ST elevation to diagnose an acute pericarditis. Evolving pericarditis can result in T-wave inversion. I doubt this is due to acute ischemia, prior coronary artery disease could be an explanation. Thank you for allowing me to participate in her care.
--- NOTE | 2018-02-17 15:27 | Progress Note ---
Subjective Date of Service: Feb 17, 2018. Subjective Pt evaluation today including: conversation w/ patient, physical exam, chart review, lab review, review of studies, conversation w/ work and family life consultant, review of inpatient medication list Still complaining about mid chest pain, which is persistent and reproducible, it does not help with Maalox, but help with IV morphine Problem List Medical Problems: (1) Dehydration Status: Acute (2) Dyspnea Status: Acute (3) Gastroenteritis Status: Acute (4) Migraine Status: Acute Review of Systems Constitutional: No fever, No chills, No sweats, No weight loss, No weakness, No fatigue, No problem reported Eyes: No worsening of vision, No eye pain, No redness, No discharge, No diplopia ENT: No hearing loss, No unusual epistaxis, No nasal symptoms, No sore throat, No tinnitus, No dental problems, No trouble swallowing Respiratory: No cough, No sputum, No wheezing, No shortness of breath, No dyspnea on exertion, No dyspnea at rest, No hemoptysis Cardiac: + chest pain, No orthopnea, No PND, No edema, No claudication, No palpitations Abdomen: No pain, No nausea, No vomiting, No diarrhea, No constipation Musculoskeletal: No joint pain, No muscle pain, No swelling, No calf pain Female : No dysuria, No urinary frequency, No hematuria, No incontinence, No abnormal vaginal bleeding, No vaginal discharge Neurologic: No memory loss, No paralysis, No weakness, No numbness/tingling, No vertigo, No balance problems Psychiatric: No depression symptoms, No anhedonism, No anxiety, No insomnia, No substance abuse Heme: No abnormal bleeding/bruising, No clotting problems, No swollen lymph nodes, No night sweats Endo: No fatigue, No excessive thirst, No excessive urination Skin: No rash, No itch, No new/changing skin lesions, No color change, No bleeding Objective Vital Signs Date Time Temp Pulse Resp B/P (MAP) Pulse Ox O2 Delivery O2 Flow Rate FiO2 02/17/18 13:07 36.7 83 16 111/71 (84) 99 Room Air 02/17/18 12:00 Room Air 02/17/18 08:00 Room Air 02/17/18 07:14 36.7 86 16 119/70 (86) 97 Room Air 02/17/18 06:09 36.8 62 19 112/76 (88) 96 Room Air 02/17/18 04:00 96 Room Air 02/17/18 00:30 96 Room Air 02/17/18 00:07 36.8 66 20 125/79 (94) 96 Room Air 02/16/18 22:23 96 Room Air 02/16/18 20:16 36.8 80 20 134/91 (105) 96 Room Air 02/16/18 19:31 137/90 02/16/18 19:15 79 23 98 02/16/18 19:01 137/84 02/16/18 18:45 79 28 100 02/16/18 18:39 75 18 153/79 98 Room Air 02/16/18 17:48 77 20 131/83 97 Room Air 02/16/18 17:11 80 20 130/71 98 Room Air 02/16/18 16:35 84 02/16/18 16:28 89 22 150/91 99 Room Air 02/16/18 16:22 96 Room Air 02/16/18 16:20 97 Room Air 02/16/18 16:16 36.9 94 17 142/100 97 Room Air Physical Exam General Appearance: WD/WN, no apparent distress, + obese Eyes: normal inspection, PERRL, EOMI, sclerae normal ENT: normal ENT inspection, hearing grossly normal, pharynx normal Neck: supple, no adenopathy, thyroid normal, no JVD, no carotid bruits, trachea midline Respiratory/Chest: lungs clear, normal breath sounds, no respiratory distress, no accessory muscle use, + pertinent finding (Reproducible epigastric area tender) Cardiovascular: regular rate, rhythm, no edema, no gallop, no JVD, no murmur Abdomen: normal bowel sounds, non tender, soft, no organomegaly, no pulsatile mass Extremities: normal range of motion, non-tender, normal inspection, no pedal edema, no calf tenderness, normal capillary refill, pelvis stable Neurologic/Psychiatric: bench hand II-XII nml as tested, no motor/sensory deficits, alert, normal mood/affect, oriented x 3 Skin: normal color, warm/dry, no rash Lymphatic: no adenopathy Laboratory Results Last 24 Hours Test 02/16/18 16:30 02/16/18 16:35 02/16/18 22:05 02/17/18 06:09 White Blood Count 10.39 K/uL 6.68 K/uL Red Blood Count 5.59 M/uL 4.77 M/uL Hemoglobin 15.4 g/dL 13.0 g/dL Hematocrit 45.4 % 38.8 % Mean Corpuscular Volume 81.2 fL 81.3 fL Mean Corpuscular Hemoglobin 27.5 pg 27.3 pg Mean Corpuscular Hemoglobin Concent 33.9 g/dl 33.5 g/dl Platelet Count 458 K/uL 311 K/uL Mean Platelet Volume 10.8 fL 10.5 fL Neutrophils (%) (Auto) 52.0 % 48.5 % Lymphocytes (%) (Auto) 42.3 % 44.0 % Monocytes (%) (Auto) 4.9 % 6.0 % Eosinophils (%) (Auto) 0.2 % 0.9 % Basophils (%) (Auto) 0.3 % 0.3 % Neutrophils # (Auto) 5.41 K/uL 3.24 K/uL Lymphocytes # (Auto) 4.39 K/uL 2.94 K/uL Monocytes # (Auto) 0.51 K/uL 0.40 K/uL Eosinophils # (Auto) 0.02 K/uL 0.06 K/uL Basophils # (Auto) 0.03 K/uL 0.02 K/uL RDW Standard Deviation 44.3 fL 44.7 fL RDW Coefficient of Variation 15.1 % 15.2 % Immature Granulocyte % (Auto) 0.3 % 0.3 % Immature Granulocyte # (Auto) 0.03 K/uL 0.02 K/uL Prothrombin Time 10.8 SECONDS Prothromb Time International Ratio 1.0 Activated Partial Thromboplast Time 26.6 SECONDS Partial Thromboplastin Ratio 1.0 D-Dimer 320 ug/L FEU Sodium Level 141 mmol/L 141 mmol/L Potassium Level 3.5 mmol/L 3.8 mmol/L Chloride Level 106 mmol/L 109 mmol/L Carbon Dioxide Level 28 mmol/L 26 mmol/L Anion Gap 7.0 mmol/L 6.0 mmol/L Blood Urea Nitrogen 7 mg/dl 11 mg/dl Creatinine 0.98 mg/dl 0.89 mg/dl Est Creatinine Clear Calc Drug Dose 93.3 ml/min 103.2 ml/min Estimated GFR () 79.6 89.5 Estimated GFR (Non- 68.7 77.2 BUN/Creatinine Ratio 7.1 12.1 Random Glucose 103 mg/dl 109 mg/dl Calcium Level 9.5 mg/dl 8.7 mg/dl Total Bilirubin 0.4 mg/dl Direct Bilirubin 0.1 mg/dl Aspartate Amino Transf (AST/SGOT) 23 U/L Alanine Aminotransferase (ALT/SGPT) 25 U/L Alkaline Phosphatase 115 U/L Troponin I < 0.015 ng/ml < 0.015 ng/ml < 0.015 ng/ml Total Protein 8.2 gm/dl Albumin 4.1 gm/dl Lipase 132 U/L Bedside Troponin I < 0.030 ng/ml Triglycerides Level 102 mg/dl Cholesterol Level 128 mg/dl HDL Cholesterol 35 mg/dl LDL Cholesterol, Calculated 73 mg/dl VLDL Cholesterol, Calculated 20 mg/dl Cholesterol/HDL Ratio 3.7 Chemistry Specimen Hemolysis Test 02/17/18 12:00 Urine Opiates Screen POS Urine Methadone, Qualitative NEG Urine Barbiturates NEG Urine Phencyclidine (PCP) Level NEG Ur Amphetamine/Methamphetamine NEG MDMA (Ecstasy) Screen NEG Urine Benzodiazepines Screen NEG Urine Cocaine Metabolite NEG Urine Marijuana (THC) POS Assessment and Plan 47-year-old female admitted because of acute onset of upper epigastric/chest pain Chest pain rule out, chest pain is epigastric area and reproducible likely atypical chest pain, which also supported by cardiac enzyme troponin were negative, However patient ages, has morbid obesity BMI of 42, atypical EKG changes of T- wave , feel she is benefit to the stress test tomorrow to rule out ACS, she agreed, cardiology input appreciated. Possible illicit drug use with positive marijuana in the urine drug screening, will counselling her about stay away from illicit drug, and will try NSAID for the epigastric pain which is reproducible likely musculoskeletal, will no more give morphine, with history of DJD, chronic back pain, anxiety, insomnia; stable continue current care GERD: The new PPI and GI cocktail as needed Chronic back pain, Continue oxycodone, patient is currently attempting to wean off of this per her PCP VANIA Depression Continue Lexapro 10 mg daily, Ativan 0.5mg QHS prn DVT ppx: lovenox, ambulatory CODE STATUS: Full code Disposition: Possible tomorrow if stress test negative Continued [facility] stay due to: multiple IV medications needed Discharge planning: home
[2018-02-17] MEDS ORDERED: KETOROLAC TROMETHAMINE 30 MG/ML VIAL IV. SCH (17:00)
[2018-02-17] MEDS: SIMVASTATIN 40 MG TAB PO SCH (21:39)
[2018-02-17] MEDS: ENOXAPARIN 40 MG/0.4 ML SYR SC SCH (21:39)
[2018-02-17] MEDS ORDERED: OXYCODONE HCL IR 5 MG TAB (IMMEDIATE RELEASE) PO PRN ×2 (22:00→23:00)
[2018-02-17] MEDS ORDERED: LORAZEPAM 0.5 MG TAB PO PRN (22:00)
[2018-02-18] MEDS ORDERED: OXYCODONE HCL IR 5 MG TAB (IMMEDIATE RELEASE) PO STA (00:59)
[2018-02-18] MEDS ORDERED: OXYCODONE HCL IR 5 MG TAB (IMMEDIATE RELEASE) PO PRN (01:00)
[2018-02-18 05:25] VITALS: BP 124/73; PULSE 55; TEMP 36.5; O2SAT 95
[2018-02-18 06:47] LABS: BASO % 0.4 %; BASO ABS # 0.03 K/uL (0-0.2); EOS % 1.3 %; EOS ABS # 0.09 K/uL (0-0.5); HEMATOCRIT 38.3 % (37-47); HEMOGLOBIN 12.5 g/dL (12.0-16.0); IG# 0.01 K/uL (0.00-0.02); LYMPH % 46.1 %; LYMPH ABS # 3.32 K/uL (1.2-3.4); MEAN CELL VOLUME 81.7 fL (80-100); MEAN CORPUSCULAR HEMOGLOBIN 26.7 pg (25-34); MEAN CORPUSCULAR HGB CONC 32.6 g/dl (32-36); MEAN PLATELET VOLUME 10.5 fL (7.4-10.4); MONO % 6.9 %; NEUT % 45.2 %; NEUT ABS # 3.25 K/uL (1.4-6.5); PLATELET COUNT 311 K/uL (130-400); RED CELL DISTRIBUTION WIDTH CV 14.7 % (11.5-14.5)
[2018-02-18 07:13] LABS: HEMOGLOBIN A1C 5.9 % (4.5-5.6)
[2018-02-18 07:19] LABS: CREATININE 0.78 mg/dl (0.60-1.20); POTASSIUM 3.6 mmol/L (3.5-5.1)
[2018-02-18 08:12] VITALS: BP 122/79; PULSE 69; TEMP 36.5; O2SAT 96
[2018-02-18] MEDS: ASPIRIN 81 MG ECTAB PO SCH (08:16)
[2018-02-18] MEDS: PANTOprazole SOD 40 MG TAB PO SCH (08:16)
[2018-02-18] MEDS ORDERED: ESCITALOPRAM OXALATE 10 MG TAB PO SCH (09:00)
[2018-02-18] MEDS ORDERED: DOBUTamine HCL 12.5 MG/ML 20 ML VIAL ONE (10:32)
[2018-02-18] MEDS ORDERED: METOPROLOL TARTRATE 1 MG/ML VIAL ONE (10:36)
[2018-02-18] MEDS ORDERED: ZCR40 PO (11:38)
[2018-02-18] MEDS ORDERED: ASPI-320 PO (11:38)
[2018-02-18] MEDS ORDERED: PRT40 PO (11:38)
--- NOTE | 2018-02-18 11:42 | Discharge Instructions ---
Discharge Instructions Date of Service Feb 18, 2018. Admission Reason for Admission: Chest Pain Discharge Discharge Diagnosis / Problem: Atypical chest pain Discharge Goals Goal(s): Decrease discomfort, Improve function, Increase independence, Improve disease control Activity Recommendations Activity Limitations: resume your previous activity Lifting Limitations: no more than 25 pounds, gradually increase as tolerated Exercise/Sports Limitations: rest today, gradually increase as tolerated May Resume Sexual Activity: when tolerated Shower/Bathe: no limitations Driving or Machine Use: no limitations . Instructions / Follow-Up Instructions / Follow-Up You were admitted to [facility] with chest pain and diagnosed with atypical chest pain secondary to indigestion and anxiety. Cardiac involvement was ruled out with negative enzymes, echocardiogram, and a stress echocardiogram. During your stay here you were treated with supportive care. Decrease the amount of soda you drink and drink more water. Do not use marijuana! Medications: Continue taking your medications as prescribed. You have been started on a statin for cholesterol, baby aspirin for cardiac health, and pantoprazole for indigestion. Appointments: Follow up with PCP within 1 week as already scheduled. Follow up with cardiology within 2-4 weeks, an appointment has been requested for you. Current Hospital Diet Patient's current hospital diet: AHA Diet (Heart Healthy) Discharge Diet Recommended Diet: AHA Diet (Heart Healthy) Pending Studies Studies pending at discharge: no Laboratory Results Hemoglobin A1c Test 02/17/18 06:09 Range/Units Estimated Average Glucose 123 mg/dl Hemoglobin A1c 5.9 H 4.5-5.6 % Lipid Panel Test 02/17/18 06:09 Range/Units Triglycerides Level 102 0-150 mg/dl Cholesterol Level 128 0-200 mg/dl HDL Cholesterol 35 mg/dl Cholesterol/HDL Ratio 3.7 LDL Cholesterol, Calculated 73 mg/dl Medical Emergencies . Who to Call and When: Medical Emergencies: If at any time you feel your situation is an emergency, please call 911 immediately. . Non-Emergent Contact Non-Emergency issues call your: Primary Care Provider Call Non-Emergent contact if: you have a fever, temperature is above 100.5, your pain is not controlled, your pain is worsening, your pain is unusual for you, your pain is concerning you, you have any medication questions other concerns with your health. Call 911 or go directly to the Emergency Department if you experience any of the following: Chest pain, chest tightness, shortness of breath, abdominal pain , lightheadedness, dizziness, gastrointestinal bleeding, or have any other concerns regarding your health. . Past History Medical & Surgical History: (1) Chest pain (2) Chronic back pain (3) Dyspnea (4) VANIA (generalized anxiety disorder) (5) Insomnia . "Provider Documentation" section prepared by Rody Ballesteros. . [place] Drug Monitoring Program Search Results: patient reviewed within database
[2018-02-18 12:04] VITALS: BP 107/74; PULSE 70; TEMP 36.4; O2SAT 96
--- NOTE | 2018-02-18 13:57 | Discharge Summary ---
Discharge Summary Date of Service Feb 18, 2018. Discharge Summary Admission Date: Feb 16, 2018 at 18:44 Discharge Date: Feb 18, 2018 Discharge Disposition: Home Principal Diagnosis: Atypical Chest pain Problems/Secondary Diagnoses: Medical Problems: (1) Chest pain (2) Chronic back pain (3) VANIA (generalized anxiety disorder) (4) Insomnia (5) Morbid obesity with BMI of 40.0-44.9, adult Procedures: CHEST 2 VIEWS ROUTINE 02/16/18 FINDINGS: The lungs are clear. Cardiac silhouette is normal in size. No pleural effusions. No pneumothorax. IMPRESSION: No acute process. ABD/PELVIS NO IV OR ORAL CONT 02/17/18 IMPRESSION: 1. Hepatic steatosis. Correlate with liver function tests to exclude steatohepatitis as a cause for abdominal pain. 2. No other evidence of acute intra-abdominal pathology. Stress Echocardiogram 02/18/18 Consultations: Cardiology Medication Reconciliation New Medications: Aspirin (Aspirin EC Low Dose) 81 Mg Ectab 81 MG PO QAM for 30 Days, #30 TAB Pantoprazole (Pantoprazole Sodium) 40 Mg Tab 40 MG PO QAM for 30 Days, #30 TAB Simvastatin (Simvastatin) 40 Mg Tab 40 MG PO HS for 30 Days, #30 TAB Continued Medications: Escitalopram (Lexapro) 10 Mg Tab 10 MG PO DAILY Lorazepam (Ativan) 0.5 Mg Tab 0.5 MG PO NEEDED Oxycodone HCl (Oxycodone Hydrochloride) 5 Mg Cap 5 MG PO NEEDED Discharge Exam The patient was seen and examined this morning. Pt reports doing well today. Her epigastric pain is now resolved. She can not illicit pain with exertion or palpation. She cannot pinpoint a relieving factor and denies that this feels like gerd. She was able to participate in the stress echo this morning without difficulty. Pt was encouraged to decrease the amount of soda she drinks. ROS: Constitutional: No fever, sweats or chills Eyes: No diplopia, no worsening or blurred vision ENT: normal hearing, no trouble swallowing Respiratory: No cough, sputum, dyspnea at rest or on exertion Cardiovascular: No chest pain, tightness or palpitations Abdomen: No pain, nausea, vomiting, diarrhea or constipation Musculoskeletal: No joint pain, calf pain, swelling Neurologic: No weakness, numbness/tingling, or balance problems Psychiatric: No anxiety or depression Skin: No rash or itch PE: General: awake, alert, no apparent distress, morbidly obese Head: Normocephalic, atraumatic ENT: PERRL, EOMI, no pharyngeal exudate, mucous membranes moist Chest: Clear to auscultation, on room air, no adventitious breath sounds Cardiac: Regular rate and rhythm, no murmur, no JVD, normal peripheral pulses, good capillary refill Abdominal: NABS x 4 quadrants, soft, nontender to palpation, no rebound, guarding or tenderness Extremities: Normal inspection, no peripheral edema or erythema, calfs nontender to palpation Psych: Normal mood and affect Neuro: AAO x 3, strength intact bilaterally and related 5/5, no motor deficits, speech is clear, no peripheral sensory deficits Hospital Course This is a 47-year-old female with history of DJD, chronic back pain, anxiety, insomnia who presents with acute onset of upper epigastric/chest pain which began around 10 AM this morning. She reports the pain was a 6/10, nonradiating , worse with palpation in the epigastric region. Pain resolved prior to discharge. Stress echo completed and was negative for acute findings. Chest pain rule out - Serial cardiac biomarkers negative x 3 - Stress echo cardiogram completed and was negative for acute ischemia or significant findings. - EKG ST wave changes were possibly from evolving pericarditis, although she does not have ST elevation to diagnose an acute pericarditis. Evolving pericarditis can result in T-wave inversion. Will ask cardiology to have follow up with the pt in 2weeks. - Statin therapy, asa 81 mg daily - CXR negative GERD - Started on pantoprazole 40 mg daily- continued at discharge. - Maalox suspension did not seem to alleviate sx, - pt with significant soda intake - consider GI consult for gastric ulcers with pts significant soda intake if patient develops worsening nausea or vomiting - pt encouraged to decrease soda intake. Chronic back pain - Continue oxycodone, patient is currently attempting to wean off of this per her PCP VANIA Depression - Continue Lexapro 10 mg daily, Ativan 0.5mg QHS prn DVT ppx: lovenox, ambulatory CODE STATUS: Full code Disposition: Patient from home, no needs anticipated, dc today. [place] Physician Supervision Note: I interviewed and examined the patient. Discussed with Mahsa Ballesteros PAC and agree with findings and plan as documented in the note. Any exceptions or clarifications are listed here: None Patient a negative stress test today she has no continued chest pain we discussed alternative causes of her chest pain including both GERD and anxiety. We talked about dietary modifications to help treating GERD and encourage her to follow-up with her primary care provider if her treatment does not help to make be consider changes in her Lexapro dosing Vital signs today were temperature of 36 5 pulse 69 respiration rate 18 BP 120/ 7996% on room air cardiac exam is regular lungs were clear patient is discharged home Documented By: Osiel Melchor Total Time Spent: Greater than 30 minutes This includes examination of the patient, discharge planning, medication reconciliation, and communication with other providers. Discharge Instructions Please refer to the electronic Patient Visit Report (Discharge Instructions) for additional information. Follow-Up Follow up with your Primary Care Provider within 1 week. Follow up with cadiology within 2 weeks, Dr. Hernandez.
--- NOTE | 2018-02-18 14:01 | DOBUTAMINE ECHO ---
*NOTICE TO RECEIVING [employer] This information is strictly Confidential and protected under [place] law. [place] law prohibits you from making any further disclosure of this information unless further disclosure is expressly permitted by the written consent of the person to whom it pertains or is authorized by law. A general authorization for the release of medical or other information is not sufficient for this purpose. Hospital accepts no responsibility if the information is made available to any other person, INCLUDING THE PATIENT. Interpretation Summary * Name: LANA LAZO Study Date: 02/18/2018 09:35 AM BP: 119/82 mmHg * Patient Location: [facility] HR: 64 * : 1970 (M/d/yyyy) Gender: Female Height: 65 in * Age: 47 yrs Ethnicity: [place] Weight: 262 lb * Ordering Physician: Peewee Olivo * Referring Physician: Self, Referred * Performed By: Amberly Morrow RDCS * * Reason For Study: Chest Pain * BSA: 2.2 m2 * -- Conclusions -- * Dobutamine Stress Echo: * 1. Negative Dobutamine stress echo for ischemia at 85 % MPHR. * 2. Negative Dobutamine ECG for ischemia at 85 % MPHR. * 3. Appropriate blood pressure response. * 4. No arrhythmia. * 5. No chest pain reported. * 6. Technically difficult study, enhanced with IV Definity. * Echo: * 1. Normal left ventricular size and systolic function. EF 55-60%. No regional wall motion abnormalities. No left ventricular hypertrophy. No significant diastolic dysfunction. * 2. No significant valvular abnormalities visualized. * 3. Technically difficult study. * 4. Normal estimated right ventricular systolic pressure. Procedure Details * DOBUTAMINE ECHO, CPT#[id number] * ECHO DOPPLER, CPT #[id number] * ECHO COLOR FLOW, CPT #[id number] * The study was technically difficult with many images being suboptimal in quality. * A contrast injection of Definity was performed to improve assessment of LV function. * Contrast was injected into an intravenous site in the left arm. * One vial of Definity ultrasound contrast was diluted in normal saline to a total volume of 10 ml. A total of '4' ml of solution was administered during imaging. * Lot # [id number] of Definity utilized for procedure. * Expiration date 1APR19. * The attending nurse who injected the contrast agent was Jami Thompson RN. Left Ventricle * The left ventricle is normal in size. * There is normal left ventricular wall thickness. * Ejection Fraction = 55-60%. * Left ventricular systolic function is normal. * Resting wall motion: Normal. Stress wall motion: Appropriate increase in Left ventricular systolic function and decrease in cavity size. No stress induced segmental wall motion abnormalities. * The left ventricular ejection fraction increases normally with stress. The left ventricular end-systolic cavity size reduces post-stress (normal response). The left ventricular wall motion with stress is normal. Right Ventricle * The right ventricle is normal size. * The right ventricular systolic function is normal as assessed by tricuspid annular plane systolic excursion (TAPSE) (normal >1.5 cm). Atria * The left atrial size is normal. * Right atrial size is normal. * Right atrium not well visualized. Mitral Valve * The mitral valve is grossly normal. * There is no mitral valve stenosis. * There is trace mitral regurgitation. Tricuspid Valve * The tricuspid valve is not well visualized. * There is no tricuspid stenosis. * Significant tricuspid regurgitation is absent. Aortic Valve * The aortic valve is not well visualized. * No hemodynamically significant valvular aortic stenosis. * There is no significant aortic regurgitation. Pulmonic Valve * The pulmonic valve is not well visualized. Great Vessels * The aortic root is normal size. * Normal pulmonary venous flow pattern. Normal IVC size and inspiratory collapse. Pericardium * There is no pericardial effusion. Stress Parameters * NSR at 62 bpm. Nonspecific T wave abnormality. * Stress ECG: No ST changes. No arrhythmias. * No arrhythmia were noted with stress. * Pseudonormalization of baseline T wave abnormality. * Rest heart rate was '64' BPM. * Rest blood pressure was '119/82' * Maximum heart rate achieved was 148 bpm. * Maximum heart rate was 85 % of maximum age-predicted heart rate. * Maximum blood pressure was '163/75' * Maximum Dobutamine infusion rate was '40' mcg/kg/min. * A total of 0.75 mg of intravenous Atropine was used to supplement Dobutamine for heart rate response. * Dobutamine infusion was terminated due to achieving target heart rate * A total of 5 mg of IV Metoprolol was administered to reverse Dobutamine-induced tachycardia. MMode 2D Measurements and Calculations IVSd 1.1 cm IVSs 1.2 cm LVIDd 4.4 cm LVIDs 3.0 cm LVPWd 1.1 cm LVPWs 1.8 cm IVS/LVPW 0.98 FS 31.5 % EDV(Teich) 88.9 ml ESV(Teich) 35.9 ml EF(Teich) 59.6 % EDV(cubed) 86.6 ml ESV(cubed) 27.8 ml EF(cubed) 67.9 % % IVS thick 14.1 % % LVPW thick 66.4 % LV mass(C)d 166.0 grams LV mass(C)dI 74.8 grams/m\S\2 LV mass(C)s 163.2 grams LV mass(C)sI 73.5 grams/m\S\2 SV(Teich) 53.0 ml SI(Teich) 23.9 ml/m\S\2 SV(cubed) 58.8 ml SI(cubed) 26.5 ml/m\S\2 Ao root diam 3.1 cm Ao root area 7.7 cm\S\2 ACS 2.0 cm LA dimension 3.5 cm LA/Ao 1.1 LVAd ap4 27.8 cm\S\2 LVLd ap4 8.4 cm EDV(MOD-sp4) 76.3 ml EDV(sp4-el) 77.5 ml LVAs ap4 16.2 cm\S\2 LVLs ap4 7.3 cm ESV(MOD-sp4) 31.5 ml ESV(sp4-el) 30.5 ml EF(MOD-sp4) 58.7 % EF(sp4-el) 60.6 % LVAd ap2 24.6 cm\S\2 LVLd ap2 7.9 cm EDV(MOD-sp2) 66.9 ml EDV(sp2-el) 65.3 ml LVAs ap2 14.6 cm\S\2 LVLs ap2 6.6 cm ESV(MOD-sp2) 28.8 ml ESV(sp2-el) 27.2 ml EF(MOD-sp2) 57.0 % EF(sp2-el) 58.3 % LVLd %diff -7.05 % EDV(MOD-bp) 74.5 ml LVLs %diff -10.53 % ESV(MOD-bp) 31.7 ml EF(MOD-bp) 57.4 % SV(MOD-sp4) 44.8 ml SI(MOD-sp4) 20.2 ml/m\S\2 SV(MOD-sp2) 38.1 ml SI(MOD-sp2) 17.2 ml/m\S\2 SV(MOD-bp) 42.8 ml SI(MOD-bp) 19.3 ml/m\S\2 SV(sp4-el) 47.0 ml SI(sp4-el) 21.2 ml/m\S\2 SV(sp2-el) 38.1 ml SI(sp2-el) 17.2 ml/m\S\2 Doppler Measurements and Calculations MV E max carol 78.6 cm/sec MV A max carol 67.4 cm/sec MV E/A 1.2 MV dec time 0.26 sec Ao V2 max 152.0 cm/sec Ao max PG 9.2 mmHg Ao max PG (full) 0.78 mmHg LV V1 max PG 8.5 mmHg LV V1 max 145.5 cm/sec PA V2 max 110.5 cm/sec PA max PG 4.9 mmHg TR max carol 212.4 cm/sec RVSP(TR) 21.0 mmHg RAP systole 3.0 mmHg
[2018-02-18 14:32] VITALS: BP 107/74; PULSE 70; TEMP 36.4; O2SAT 96
== END 2018-02-18 14:58 | disposition home or self-care (01) ==
LOC: C.EDB 16:11 → C.MED 18:44 → ENRESERV 19:10
PROVIDERS: ADMIT Hospitalist; ATTEND Hospitalist
DX: R07.89 Other chest pain (principal); M54.9 Dorsalgia, unspecified; G89.29 Other chronic pain; F41.1 Generalized anxiety disorder; G47.00 Insomnia, unspecified; E66.01 Morbid (severe) obesity due to excess calories; Z68.41 Body mass index [BMI] 40.0-44.9, adult; Z79.82 Long term (current) use of aspirin; Z79.899 Other long term (current) drug therapy; Z88.2 Allergy status to sulfonamides

== ENCOUNTER → 2018-03-28 | Outpatient (CLI) | payer OTHER ==
[~2018-03-28] MED LIST changes: -ALPR1TAB3 PO; +ASPI-320 PO; +COLC0.6T54 PO; -DIPH1TAB87 PO; +ESCI10TA17 PO; -FRS/40 PO; +LORA-741 PO; -MRPSR60 PO; +NXM/40 PO; +OXYC-164 PO; -PHEN-582 PO; -PHEN-905 PO; +PRT40 PO; -PSEUCAP67 PO; +ZCR40 PO; -ZOLP5TAB6 PO
--- NOTE | 2018-03-28 09:48 | DIAGNOSTIC IMAGING REPORT ---
C-SPINE ROUTINE 4 OR 5 VIEWS CLINICAL HISTORY: Neck pain. No recent trauma. COMPARISON STUDY: No previous studies for comparison. FINDINGS: Straightening of the normal cervical lordosis is noted. Vertebral body heights are maintained. There is no fracture or suspicious lesion. A calcific density posterior to the spinous process of C6 is chronic. There is minimal disc space narrowing at C5-C6 and C6-C7 with mild osteophytosis. Multilevel bony neural foraminal narrowing is noted. IMPRESSION: 1. No cervical spine fracture or subluxation. 2. Mild multilevel degenerative disc disease and facet arthrosis. Electronically signed by: Hemanth Cervantes M.D. 03/28/2018 9:47 AM Dictated Date/Time: 03/28/2018 9:45 AM
--- NOTE | 2018-03-28 09:50 | DIAGNOSTIC IMAGING REPORT ---
L-SPINE MIN 4 VIEWS ROUTINE HISTORY: 47 years-old Female LUMBAGO acute low back pain without known injury COMPARISON: CT abdomen and pelvis 02/17/2018 TECHNIQUE: 5 views of the lumbar spine FINDINGS: There are 5 nonrib-bearing lumbar type vertebral segments present. No acute fracture or subluxation. Moderate intervertebral disc space narrowing with spondylitic spurring at L4-L5. Mild intervertebral disc space narrowing at L3-L4 and L5-S1. Multilevel spondylitic spurring. Mild to moderate facet arthrosis of the mid and lower lumbar spine. There is straightening of the normal lumbar lordosis. Soft tissues are unremarkable. IMPRESSION: 1. No acute fracture or subluxation. 2. Moderate intervertebral disc space narrowing with spondylitic spurring at L4-L5. 3. Straightening of the normal lumbar lordosis may be secondary to positioning or paraspinal muscle spasm. The above report was generated using voice recognition software. It may contain grammatical, syntax or spelling errors. Electronically signed by: Alexandr Jasso M.D. 03/28/2018 9:49 AM Dictated Date/Time: 03/28/2018 9:47 AM
== END | disposition home or self-care (01) ==
LOC: C.RADBC 09:12
PROVIDERS: ATTEND Physician Assistant Medical
DX: M50.322 Other cervical disc degeneration at C5-C6 level (principal); M50.323 Other cervical disc degeneration at C6-C7 level; M51.36 Other intervertebral disc degeneration, lumbar region; M54.2 Cervicalgia; M54.5 Low back pain

== ENCOUNTER → 2018-06-05 | Outpatient (CLI) | payer OTHER ==
[~2018-06-05] MED LIST changes: -ASPI-320 PO; +GADAVIST IV PRN; -OXYC1CAP PO; +PANT1TAB4 PO; -PRT40 PO; -ZCR40 PO
--- NOTE | 2018-06-05 11:07 | DIAGNOSTIC IMAGING REPORT ---
MRI LUMBAR SPINE COMBO CLINICAL HISTORY: Chronic low back pain. History of previous lumbar surgeries. COMPARISON STUDY: Radiographs of lumbar spine dated 03/08/2018. Abdominal CT dated 02/17/2018. TECHNIQUE: MRI of the lumbar spine is performed utilizing various T1 and T2-weighted sequences in the axial and sagittal planes. Contrast-enhanced sequences are acquired following the IV administration of 11.5 mL of Gadavist. FINDINGS: Lumbar spine: Vertebral body height and alignment are maintained throughout the lumbar spine. Chronic degenerative endplate change is seen at L3-L4 and L4-L5. No significant endplate edema is identified. There is evidence of previous left hemilaminectomy at L4-L5. The transverse and spinous processes appear intact. There is no evidence of spondylolysis. Tiny anterior osteophytes are seen in the lower lumbar region. No destructive bony lesion is seen. Intervertebral discs: There is degenerative disc desiccation seen throughout the lumbar spine. There is moderate loss of height at L3-L4 and severe loss of height at L4-L5. Spinal cord: The visualized spinal cord is normal in morphology and signal intensity. The conus medullaris terminates at the level of L1. The nerve roots of the cauda equina are normal in morphology. No abnormal enhancement is seen on the postcontrast sequences. L1-L2: Unremarkable. L2-L3: Unremarkable. L3-L4: There is minimal posterior disc bulge. There is no significant acquired compromise of the central canal. Facet arthropathy is of no confluence. The neural foramina are widely patent. A facet joint effusion is seen on the right. L4-L5: There is a tiny disc bulge eccentric to the right. This causes mild right-sided subarticular stenosis and abuts the transiting right L5 nerve root. The central canal and neural foramina are patent. Facet arthropathy is of no consequence. L5-S1: There is minimal central disc bulge. Facet arthropathy is of no consequence. The central canal and neural foramina are patent. Sacrum: The visualized sacrum is normal in morphology and signal intensity. Soft tissues: There is mild fatty atrophy of the paraspinous musculature. The retroperitoneal structures are normal as visualized but incompletely assessed. IMPRESSION: 1. There is no disc herniation or significant central canal stenosis identified involving the lumbar spine. 2. Mild spondylotic and postoperative changes as detailed above. See discussion for detailed [id number] analysis. Dictated: 06/05/2018 10:28 AM Transcribed: 06/05/2018 11:06 AM [email or web address] Electronically signed by: Robin Crystal M.D. 06/05/2018 11:37 AM Dictated Date/Time: 06/05/2018 10:28 AM
== END | disposition home or self-care (01) ==
LOC: C.MRIBC 05-28 08:16
PROVIDERS: ATTEND Physician Assistant Medical
DX: M54.5 Low back pain (principal)